=== PATIENT | male | born 2005 | race Caucasian/White ===

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

== ENCOUNTER 2023-09-28 12:18 | Emergency (ER) | payer BC, MEDICAID ==
[2023-09-28 13:57] VITALS: BP 118/72; PULSE 81
== END 2023-09-28 14:04 | disposition home or self-care (01) ==
LOC: JP.ED 12:18
DX: S20.212A Contusion of left front wall of thorax, initial encounter (principal); F17.210 Nicotine dependence, cigarettes, uncomplicated; J45.909 Unspecified asthma, uncomplicated; Z79.51 Long term (current) use of inhaled steroids; Z86.19 Personal history of other infectious and parasitic diseases; X50.1XXA Overexertion from prolonged static or awkward postures, initial encounter; Y93.89 Activity, other specified
CPT/HCPCS: 71250; 71250-26; 99284

== ENCOUNTER 2024-09-25 00:03 | Emergency (ER) | payer SELFPAY ==
[2024-09-25 00:25] VITALS: BP 121/72; PULSE 87
== END 2024-09-25 02:08 | disposition home or self-care (01) ==
LOC: JP.ED 00:03
DX: S63.650A Sprain of metacarpophalangeal joint of right index finger, initial encounter (principal); S20.219A Contusion of unspecified front wall of thorax, initial encounter; S09.90XA Unspecified injury of head, initial encounter; Z91.048 Other nonmedicinal substance allergy status; Z79.51 Long term (current) use of inhaled steroids; Z79.899 Other long term (current) drug therapy; Y04.8XXA Assault by other bodily force, initial encounter; Y93.89 Activity, other specified
CPT/HCPCS: 70450; 71046; 71046-26; 73140-26-F6; 73140-F6; 99284